=== PATIENT | female | born 1945 | race Caucasian/White ===

== ENCOUNTER 2023-12-30 12:05 | Observation (INO) | payer MEDICARE, SELFPAY ==
[2023-12-30] VITALS (11 sets, daily range): BP systolic 134–164; BP diastolic 65–100; PULSE 82–91; RESP 17–31; TEMP 36.3–36.4; O2SAT 98–100; BMI 25.9
--- NOTE | 2023-12-30 12:44 | DI.CT.S_ITS ---
PROCEDURE: CT CHEST ABD PEL WO CON INDICATIONS: fall 12/22, now throacic, lumbar pain w/ urinary retention TECHNIQUE: After the administration of oral contrast, 5 mm thick sections acquired from the lung apices to the symphysis pubis. 5 mm thick coronal and sagittal reformats acquired, with additional 7 mm coronal MIP reformats through the lungs. For radiation dose reduction, the following was used: automated exposure control, adjustment of mA and/or kV according to patient size. COMPARISON: None. FINDINGS: Image quality: Diagnostic sensitivity study limited secondary to lack of IV contrast. CHEST: Lower Neck: No enlarged lymph nodes. Thyroid: No thyroid nodules which require sonographic follow up, per consensus guidelines. Axillae: No enlarged lymph nodes. Chest Wall: Unremarkable. Bones: Osteopenia. Left 9th, 10th, 11th and 12th rib fractures. Lungs and Pleura: No pneumothorax or pleural effusions. No consolidation or suspicious nodules. Heart: Heart size is normal. No pericardial effusion. Thoracic Vessels: The aorta and pulmonary arteries demonstrate normal size. Mediastinum and Ambika: No enlarged lymph nodes. Esophagus: No wall thickening. Moderate-sized hiatal hernia. ABDOMEN: Liver: No solid mass. Punctate calcifications in the liver consistent with sequela prior granulomatous disease. Gallbladder: Calcified gallstones. No wall thickening. Biliary ducts: No biliary dilation. Pancreas: No ductal dilation. Spleen: Size is within normal limits. Adrenal Glands: No adrenal nodules. Kidneys and Ureters: No hydronephrosis. No solid mass. No complex renal cystic lesion which requires follow up. Stomach and Bowel: Moderate-sized hiatal hernia Normal colonic caliber, without significant wall thickening. Colonic diverticula without evidence of diverticulitis. Peritoneum: No abnormal intraperitoneal fluid. No free air. Ventral Wall: No hernia. Abdominal Nodes: No retroperitoneal or mesenteric adenopathy by size criteria. Vessels: Aorta and inferior vena cava are normal in size. PELVIS: Pelvic Organs: Calcified uterine fibroid.. Bladder: Unremarkable. Pelvic Nodes: No enlarged lymph nodes. Miscellaneous: No inguinal hernias are seen. Bones: No aggressive osseous abnormality. Spine degenerative disc disease and facet arthropathy. 9 millimeters of L4-L5 anterolisthesis secondary to facet hypertrophy. IMPRESSION: Left 9th, 10th, 11th and 12th rib fractures. No additional acute traumatic injury. Dictated by: Joelle Brandt MD, PhD on 12/30/2023 at 13:39 Approved by: Joelle Brandt MD, PhD on 12/30/2023 at 13:49
--- NOTE | 2023-12-30 12:44 | DI.CT.S_ITS ---
PROCEDURE: CT HEAD/BRAIN WO CON INDICATIONS: fall 12/22, now throacic, lumbar pain w/ urinary retention TECHNIQUE: Noncontrast 4.5 mm thick angled axial sections acquired from the foramen magnum to the vertex, with coronal and sagittal reformats. For radiation dose reduction, the following was used: automated exposure control, adjustment of mA and/or kV according to patient size. COMPARISON: None. FINDINGS: Image quality: Diagnostic. CSF spaces: Basal cisterns are patent. No extra-axial fluid collections. The ventricles are symmetric in size and shape. Brain: No intracranial bleeds or masses. There is cerebral volume loss for age, with resultant ventricular and sulcal prominence. There are periventricular and deep white matter chronic small vessel ischemic changes. There is intracranial internal carotid artery atherosclerosis. Skull and face: Calvarium and visualized facial bones appear intact, without suspicious lesions. Sinuses: Visualized sinuses and mastoids are clear. IMPRESSION: No acute intracranial disease process. Dictated by: Joelle Brandt MD, PhD on 12/30/2023 at 13:35 Approved by: Joelle Brandt MD, PhD on 12/30/2023 at 13:36
--- NOTE | 2023-12-30 12:44 | DI.CT.S_ITS ---
PROCEDURE: CT CERVICAL SPINE WO CON INDICATIONS: fall 12/22, now throacic, lumbar pain w/ urinary retention TECHNIQUE: Noncontrast 3 mm thick sections acquired from the skull base to the T4 level. Sagittal and coronal reformats were then constructed. For radiation dose reduction, the following was used: automated exposure control, adjustment of mA and/or kV according to patient size. COMPARISON: None. FINDINGS: Image quality: Excellent. Bones: No fractures or dislocations. Visualized superior ribs are intact. Soft tissues: Prevertebral soft tissues are normal in thickness. No paravertebral hematomas. No apical pneumothoraces. IMPRESSION: No fracture. No acute osseous lesion. If symptoms and/or clinical suspicion for pathology persists, evaluation with MRI should be considered for further assessment. Dictated by: Joelle Brandt MD, PhD on 12/30/2023 at 13:36 Approved by: Joelle Brandt MD, PhD on 12/30/2023 at 13:39
[2023-12-30 12:58] LABS: Add Manual Diff / Slide Review NO; Basophils Absolute Auto 0 /uL (0-100); Basophils Percent Auto 0.3 % (0-2); Eosinophils Absolute Auto 0 /uL (0-450); Eosinophils Percent Auto 0.2 % (2-4); Hematocrit 36.5 % (36-46); Hemoglobin 12.5 g/dL (12.0-16.0); Lymphocytes Absolute Auto 800 /uL (1100-4500); Lymphocytes Percent Auto 6.9 % (25-40); Mean Corpuscular HGB Conc 34.3 % (30-36); Mean Corpuscular Volume 90.4 fL (80-100); Monocytes Absolute Auto 500 /uL (0-900); Monocytes Percent Auto 4.5 % (3-14); Neutrophils Absolute Auto 10500 /uL (1500-7000); Neutrophils Percent Auto 88.1 % (50-75); Platelet Count 350 X10^3/uL (150-400); Red Blood Cell Count 4.04 X10^6/uL (4.0-5.2); Red Cell Distribution Width 13.3 % (11.6-14.8)
[2023-12-30 13:06] LABS: Prothrombin Time 11.6 SECONDS (9.4-12.5)
[2023-12-30 13:09] LABS: PTT Partial Thromboplastin Tim 25 SECONDS (25.1-36.5)
[2023-12-30 13:20] LABS: Alanine Aminotransferase 27 IU/L (<35); Albumin 4.1 g/dL (3.5-5.0); Albumin Globulin Ratio 1.2 (1.0-2.8); Alkaline Phosphatase 86 U/L (38-126); Aspartate Aminotransferase 56 IU/L (14-36); BUN Creatinine Ratio 23.1 (6-22); Bilirubin Total 1.3 mg/dL (0.2-1.3); Blood Urea Nitrogen 12 mg/dL (7-17); Calcium 9.3 mg/dL (8.4-10.2); Carbon Dioxide 25 mmol/L (22-32); Chloride 95 mmol/L (98-107); Creatine Kinase 669 U/L (30-135); Estimated Glomerular Filt Rate > 60 mL/min (>60); Globulin 3.5 g/dL (1.7-4.1); Glucose 128 mg/dL (80-110); HEMOLYSIS < 15 (0-50); Lipase 38 U/L (23-300); Magnesium 2.3 mg/dL (1.6-2.3); Potassium 3.6 mmol/L (3.4-5.1); Sodium 132 mmol/L (137-145); Total Protein 7.6 g/dL (6.3-8.2)
[2023-12-30 13:31] LABS: Troponin I < 0.012 ng/mL (0.01-0.034)
[2023-12-30] MEDS: LIDOCAINE 2% (GLYDO) 6 ML GEL TOP (14:01)
[2023-12-30] MEDS: SODIUM CHLORIDE 0.9% 1,000 ML 1000 ML IV (14:23)
[2023-12-30 14:36] LABS: Appearance Urine UA CLEAR; Bilirubin Urine UA NEGATIVE (NEGATIVE); Color Urine UA YELLOW; Glucose Urine UA NEGATIVE (Negative); Ketones Urine UA 2+ (NEGATIVE); Leukocyte Esterase Urine UA NEGATIVE (NEGATIVE); Nitrite Urine UA NEGATIVE (Negative); Occult Blood Urine UA NEGATIVE (Negative); Protein Urine UA NEGATIVE (Negative); Specific Gravity Urine UA 1.015 (1.000-1.035)
--- NOTE | 2023-12-30 14:36 | ED.FALL ---
HPI - Fall General Chief Complaint: Fall Stated Complaint: fall, fecal incontinence unable to urinate by PCP Time Seen by Provider: 12/30/23 14:04 Source: patient Mode of arrival: Wheelchair History of Present Illness HPI Narrative: patient here with sister. They live together. Patient here for left rib flank pain after a fall last . Since then unable to walk very well. Has had urinary retention as well as bowel incontinence. Patient admits she did take laxatives day 2 or 3 due to constipation. However has a hard time urinating. Patient denies any loss of consciousness. Is not on any blood thinners. No numbness or tingling or weakness to the legs or arms. Has had difficulty with mobility. Sister states she does not move very much and very difficult for her to move due to the pain. Related Data Home Medications Medication Instructions Recorded Confirmed lansoprazole 15 mg capsule,delayed 15 mg PO DAILY 03/23/22 12/30/23 release levothyroxine 25 mcg capsule 50 mcg PO DAILY 03/23/22 12/30/23 Previous Rx's Medication Instructions Recorded hydrocodone 5 mg-acetaminophen 325 1 tab PO Q6-8H PRN Pain, Moderate 01/02/24 mg tablet (4-6) #10 tabs lidocaine 5 % topical ointment 1 applic topical QID PRN Pain, 01/02/24 Mild (1-3) #50 grams lidocaine 5 % topical patch 1 patch topical DAILY #15 ea 01/02/24 polyethylene glycol 3350 17 17 g PO DAILY #510 grams 01/02/24 gram/dose oral powder tamsulosin 0.4 mg capsule (Flomax) 0.4 mg PO DAILY #30 caps 01/02/24 Allergies Allergy/AdvReac Type Severity Reaction Status Date / Time Sulfa (Sulfonamide Allergy Severe ITCHING Verified 12/30/23 12:23 Antibiotics) tetracycline Allergy Severe ITCHING Verified 12/30/23 12:23 cefuroxime Allergy Mild ITCHING Verified 12/31/23 14:19 Review of Systems Review of Systems Narrative: GENERAL: negative chills, fatigue, malaise, fever, sweats. HEENT: negative sinus pain, ear pain, sore throat RESPIRATORY: negative dyspnea, cough CARDIOVASCULAR: negative chest pain, palpitations GASTROINTESTINAL: negative nausea, vomiting, abdominal pain, positive stool incontinence : negative dysuria, frequency, hematuria, positive retention MUSCULOSKELETAL: positive muscle or bony pain SKIN: negative rash, skin lesions NEUROLOGIC: negative weakness, numbness ROS Unobtainable: All systems reviewed & are unremarkable except as noted in HPI and below Patient History Social History household members: family Smoking Status: Never smoker alcohol intake: never Smoking Status: Never smoker alcohol intake frequency: 0-2 drinks per day Substance Use Type: does not use Exam Narrative Exam Narrative: GENERAL: in no distress, not toxic not dyspneic HEAD: Normocephalic. EYES: Pupils equal round ENT: Mucous membranes moist. NECK: Trachea midline. CARDIOVASCULAR: Regular rate and rhythm RESPIRATORY: Clear to auscultation. Breath sounds equal bilaterally. No wheezes, rales, or rhonchi. GASTROINTESTINAL: Abdomen soft, non-tender EXTREMITIES: No gross deformities. Moving all 4 extremities purposely independently without difficulty. BACK: Tenderness to the lower /mid lateral back with bruising noted. NEURO: AOx4. Clear speech. Light touch intact to bilateral legs and feet. Able to lift each leg independently off the bed. SKIN: Warm and dry PSYCH: Not anxious, is cooperative Initial Vital Signs Initial Vital Signs: Vital Signs Temperature 97.3 F L 12/30/23 12:15 Pulse Rate 82 12/30/23 12:15 Respiratory Rate 18 12/30/23 12:15 Blood Pressure 134/66 12/30/23 12:15 Pulse Oximetry 99 12/30/23 12:15 Oxygen Delivery Method Room Air 12/30/23 12:15 Course Orders Ordered: Discontinued Medications Acetaminophen (Acetaminophen 325 Mg Tablet) 650 mg PO Q6H PRN PRN Reason: Fever/Mild Pain (1-3) Last Admin: 01/01/24 23:43 Dose: 650 mg Documented By: Admin: 12/31/23 05:32 Dose: 650 mg Documented By: SIM Hydrocodone Bitart/Acetaminophen (Hydrocodone/Acet 5/325 Tablet) 1 tab PO Q4H PRN PRN Reason: Pain, Moderate (4-6) Diphenhydramine HCl (Diphenhydramine 25 Mg Tablet) 25 mg PO Q6HR PRN PRN Reason: Itching Last Admin: 01/01/24 23:43 Dose: 25 mg Documented By: HANS Docusate Sodium (Docusate 100 Mg Capsule) 100 mg PO BID [facility] Last Admin: 01/02/24 10:03 Dose: Not Given Documented By: Admin: 01/01/24 21:50 Dose: Not Given Documented By: Admin: 01/01/24 10:57 Dose: Not Given Documented By: Admin: 12/31/23 21:59 Dose: Not Given Documented By: Admin: 12/31/23 08:17 Dose: Not Given Documented By: Admin: 12/30/23 21:45 Dose: Not Given Documented By: SIM Enoxaparin Sodium (Enoxaparin 30 Mg/0.3 Ml Syringe) 30 mg SUBCUT DAILY [facility] Enoxaparin Sodium (Enoxaparin 40 Mg/0.4 Ml Syringe) 40 mg SUBCUT DAILY [facility] Last Admin: 01/02/24 10:00 Dose: 40 mg Documented By: Admin: 01/01/24 11:10 Dose: Not Given Documented By: Admin: 12/31/23 08:37 Dose: Not Given Documented By: BILLIE Sodium Chloride (Normal Saline 0.9%) 1,000 mls @ 1,000 mls/hr IV BOLUS ONE Stop: 12/30/23 15:01 Last Infusion: 12/30/23 15:42 Dose: Infused Documented By: Admin: 12/30/23 14:23 Dose: 1,000 mls/hr Documented By: KYLEE Ceftriaxone Sodium 1,000 mg/ (Sodium Chloride) 100 mls @ 200 mls/hr IV Q24H [facility] Last Admin: 01/01/24 17:46 Dose: 200 mls/hr Documented By: Admin: 12/31/23 18:25 Dose: Not Given Documented By: Infusion: 12/31/23 01:18 Dose: Infused Documented By: Admin: 12/30/23 19:06 Dose: 200 mls/hr Documented By: BILLIE Lidocaine (Lidocaine 5% Patch) 1 each TOP DAILY [facility] Last Admin: 01/02/24 10:00 Dose: 1 each Documented By: Admin: 01/01/24 11:04 Dose: 1 each Documented By: Admin: 12/31/23 08:15 Dose: 1 each Documented By: BILLIE Lidocaine (Remove Lidocaine Patch) 1 each TOP BEDTIME [facility] Last Admin: 01/01/24 21:50 Dose: 1 each Documented By: Admin: 12/31/23 22:02 Dose: Not Given Documented By: Admin: 12/30/23 21:51 Dose: Not Given Documented By: SIM Lidocaine (Lidocaine 5% Oint 35 Gm) 1 applic TOP QID PRN PRN Reason: Pain, Mild (1-3) Last Admin: 01/01/24 17:52 Dose: 1 applic Documented By: YUKI Lidocaine HCl (Lidocaine 2% (Glydo) 6 Ml Gel) 6 ml TOP NOW ONE Stop: 12/30/23 13:44 Last Admin: 12/30/23 14:01 Dose: 6 ml Documented By: ROSENDO Morphine Sulfate (Morphine 4 Mg/Ml Inj) 2 mg IV Q2HR [facility] Last Admin: 12/31/23 00:47 Dose: Not Given Documented By: Admin: 12/30/23 17:50 Dose: Not Given Documented By: BILLIE Morphine Sulfate (Morphine 4 Mg/Ml Inj) 2 mg IV Q2HR PRN PRN Reason: Pain, Severe (7-10) Naloxone HCl (Naloxone 0.4 Mg/Ml Vial) 0.2 mg IV Q2MIN PRN PRN Reason: Opiate Reversal Nystatin (Nystatin Powder 15gm) 1 applic TOP TID PRN PRN Reason: Rash Last Admin: 12/30/23 19:03 Dose: 1 applic Documented By: BILLIE Ondansetron HCl (Ondansetron 4 Mg Odt) 4 mg PO Q8HR PRN PRN Reason: Nausea And Vomiting Potassium Chloride (Potassium Chloride 20 Meq Tab) 40 meq PO NOW ONE Stop: 12/31/23 11:39 Last Admin: 12/31/23 14:00 Dose: 40 meq Documented By: BILLIE Tamsulosin HCl (Tamsulosin 0.4 Mg Capsule) 0.4 mg PO NOW ONE Stop: 12/31/23 18:10 Last Admin: 12/31/23 19:23 Dose: 0.4 mg Documented By: BILLIE Tamsulosin HCl (Tamsulosin 0.4 Mg Capsule) 0.4 mg PO DAILY [facility] Last Admin: 01/02/24 10:00 Dose: 0.4 mg Documented By: Admin: 01/01/24 23:43 Dose: 0.4 mg Documented By: HANS Vital Signs Vital signs: Vital Signs - 8 hr 12/30/23 12:15 12/30/23 14:21 Temperature 97.3 F L Pulse Rate 82 91 H Respiratory Rate 18 18 Blood Pressure 134/66 Pulse Oximetry 99 Oxygen Delivery Method Room Air MDM - Fall Lab Data 01/02/24 09:45 01/02/24 09:45 Labs: Lab Results 12/30/23 Range/Units 12:35 WBC 12.0 H (4.5-11.0) X10^3/uL RBC 4.04 (4.0-5.2) X10^6/uL Hgb 12.5 (12.0-16.0) g/dL Hct 36.5 (36-46) % MCV 90.4 (80-100) fL MCH 31.0 (26-34) PG MCHC 34.3 (30-36) % RDW 13.3 (11.6-14.8) % Plt Count 350 (150-400) X10^3/uL Neut % (Auto) 88.1 H (50-75) % Lymph % (Auto) 6.9 L (25-40) % [place] % (Auto) 4.5 (3-14) % Eos % (Auto) 0.2 L (2-4) % Baso % (Auto) 0.3 (0-2) % Neut # (Auto) 52878 H (2505-6198) /uL Lymph # (Auto) 800 L (3525-1559) /uL [place] # (Auto) 500 (0-900) /uL Eos # (Auto) 0 (0-450) /uL Baso # (Auto) 0 (0-100) /uL PT 11.6 (9.4-12.5) SECONDS INR 1.0 (0.9-1.3) APTT 25 L (25.1-36.5) SECONDS Sodium 132 L (137-145) mmol/L Potassium 3.6 (3.4-5.1) mmol/L Chloride 95 L (98-107) mmol/L Carbon Dioxide 25 (22-32) mmol/L BUN 12 (7-17) mg/dL Creatinine 0.52 (0.52-1.04) mg/dL Estimated GFR > 60 (>60) mL/min BUN/Creatinine Ratio 23.1 H (6-22) Glucose 128 H (80-110) mg/dL Calcium 9.3 (8.4-10.2) mg/dL Magnesium 2.3 (1.6-2.3) mg/dL Total Bilirubin 1.3 (0.2-1.3) mg/dL AST 56 H (14-36) IU/L ALT 27 (<35) IU/L Alkaline Phosphatase 86 (38-126) U/L Total Creatine Kinase 669 H (30-135) U/L Troponin I < 0.012 (0.01-0.034) ng/mL Total Protein 7.6 (6.3-8.2) g/dL Albumin 4.1 (3.5-5.0) g/dL Globulin 3.5 (1.7-4.1) g/dL Albumin/Globulin Ratio 1.2 (1.0-2.8) Lipase 38 (23-300) U/L Urine Color Yellow Urine Appearance Clear Urine pH 7.0 (4.5-8.0) Ur Specific [place] 1.015 (1.000-1.035) Urine Protein Negative (Negative) Urine Glucose (UA) Negative (Negative) g/dL Urine Ketones 2+ H (NEGATIVE) Urine Occult Blood Negative (Negative) Urine Nitrate Negative (Negative) Urine Bilirubin Negative (NEGATIVE) Urine Urobilinogen 1.0 (0.2) E.U./dL Ur Leukocyte Esterase Negative (NEGATIVE) Urine RBC None seen (0-5/HPF) Urine WBC None seen (0-5/HPF) Ur Squamous Epith Cells None seen (0-5/HPF) Urine Bacteria None seen (None) Urine Mucus 1+ H (Negative) Ur Culture Indicated? Cult not indicated Vol Urine Centrifuged 10ml (spun) Imaging Data CT scan - head: Radiologist's Impression: [place] [address] CT Scan Report Signed Patient: Madeline Kelly MR#: [id number] : 1945 Acct:[id number] Age/Sex: 78 / F Date of Service: 12/30/23 Loc: ED Accession Number: [id number] Procedure: CT head/brain wo con Ordering Provider: Otoniel Ambrose MD PROCEDURE: CT HEAD/BRAIN WO CON INDICATIONS: fall 12/22, now throacic, lumbar pain w/ urinary retention TECHNIQUE: Noncontrast 4.5 mm thick angled axial sections acquired from the foramen magnum to the vertex, with coronal and sagittal reformats. For radiation dose reduction, the following was used: automated exposure control, adjustment of mA and/or kV according to patient size. COMPARISON: None. FINDINGS: Image quality: Diagnostic. CSF spaces: Basal cisterns are patent. No extra-axial fluid collections. The ventricles are symmetric in size and shape. Brain: No intracranial bleeds or masses. There is cerebral volume loss for age, with resultant ventricular and sulcal prominence. There are periventricular and deep white matter chronic small vessel ischemic changes. There is intracranial internal carotid artery atherosclerosis. Skull and face: Calvarium and visualized facial bones appear intact, without suspicious lesions. Sinuses: Visualized sinuses and mastoids are clear. IMPRESSION: No acute intracranial disease process. Dictated by: Joelle Brandt MD, PhD on 12/30/2023 at 13:35 Approved by: Joelle Brandt MD, PhD on 12/30/2023 at 13:36 CT - cervical spine: Radiologist's Impression: [place] [address] CT Scan Report Signed Patient: Madeline Kelly MR#: [id number] : 1945 Acct:[id number] Age/Sex: 78 / F Date of Service: 12/30/23 Loc: ED Accession Number: [id number] Procedure: CT cervical spine wo con Ordering Provider: Otoniel Ambrose MD PROCEDURE: CT CERVICAL SPINE WO CON INDICATIONS: fall 12/22, now throacic, lumbar pain w/ urinary retention TECHNIQUE: Noncontrast 3 mm thick sections acquired from the skull base to the T4 level. Sagittal and coronal reformats were then constructed. For radiation dose reduction, the following was used: automated exposure control, adjustment of mA and/or kV according to patient size. COMPARISON: None. FINDINGS: Image quality: Excellent. Bones: No fractures or dislocations. Visualized superior ribs are intact. Soft tissues: Prevertebral soft tissues are normal in thickness. No paravertebral hematomas. No apical pneumothoraces. IMPRESSION: No fracture. No acute osseous lesion. If symptoms and/or clinical suspicion for pathology persists, evaluation with MRI should be considered for further assessment. Dictated by: Joelle Brandt MD, PhD on 12/30/2023 at 13:36 Approved by: Joelle Brandt MD, PhD on 12/30/2023 at 13:39 CT chest abdomen and pelvis: Radiologist's Impression: [address] [address] [address] Scan Report Signed Patient: Madeline Kelly MR#: [id number] : 1945 Acct:[id number] Age/Sex: 78 / F Date of Service: 12/30/23 Loc: ED Accession Number: [id number] Procedure: CT chest abd pel wo con Ordering Provider: Otoniel Ambrose MD PROCEDURE: CT CHEST ABD PEL WO CON INDICATIONS: fall 12/22, now throacic, lumbar pain w/ urinary retention TECHNIQUE: After the administration of oral contrast, 5 mm thick sections acquired from the lung apices to the symphysis pubis. 5 mm thick coronal and sagittal reformats acquired, with additional 7 mm coronal MIP reformats through the lungs. For radiation dose reduction, the following was used: automated exposure control, adjustment of mA and/or kV according to patient size. COMPARISON: None. FINDINGS: Image quality: Diagnostic sensitivity study limited secondary to lack of IV contrast. CHEST: Lower Neck: No enlarged lymph nodes. Thyroid: No thyroid nodules which require sonographic follow up, per consensus guidelines. Axillae: No enlarged lymph nodes. Chest Wall: Unremarkable. Bones: Osteopenia. Left 9th, 10th, 11th and 12th rib fractures. Lungs and Pleura: No pneumothorax or pleural effusions. No consolidation or suspicious nodules. Heart: Heart size is normal. No pericardial effusion. Thoracic Vessels: The aorta and pulmonary arteries demonstrate normal size. Mediastinum and Ambika: No enlarged lymph nodes. Esophagus: No wall thickening. Moderate-sized hiatal hernia. ABDOMEN: Liver: No solid mass. Punctate calcifications in the liver consistent with sequela prior granulomatous disease. Gallbladder: Calcified gallstones. No wall thickening. Biliary ducts: No biliary dilation. Pancreas: No ductal dilation. Spleen: Size is within normal limits. Adrenal Glands: No adrenal nodules. Kidneys and Ureters: No hydronephrosis. No solid mass. No complex renal cystic lesion which requires follow up. Stomach and Bowel: Moderate-sized hiatal hernia Normal colonic caliber, without significant wall thickening. Colonic diverticula without evidence of diverticulitis. Peritoneum: No abnormal intraperitoneal fluid. No free air. Ventral Wall: No hernia. Abdominal Nodes: No retroperitoneal or mesenteric adenopathy by size criteria. Vessels: Aorta and inferior vena cava are normal in size. PELVIS: Pelvic Organs: Calcified uterine fibroid.. Bladder: Unremarkable. Pelvic Nodes: No enlarged lymph nodes. Miscellaneous: No inguinal hernias are seen. Bones: No aggressive osseous abnormality. Spine degenerative disc disease and facet arthropathy. 9 millimeters of L4-L5 anterolisthesis secondary to facet hypertrophy. IMPRESSION: Left 9th, 10th, 11th and 12th rib fractures. No additional acute traumatic injury. Dictated by: Joelle Brandt MD, PhD on 12/30/2023 at 13:39 Approved by: Joelle Brandt MD, PhD on 12/30/2023 at 13:49 [facility] Narrative Medical decision making narrative: patient here with sister. They live together. Patient here for left rib flank pain after a fall last . Since then unable to walk very well. Has had urinary retention as well as bowel incontinence. Patient admits she did take laxatives day 2 or 3 due to constipation. However has a hard time urinating. Patient denies any loss of consciousness. Is not on any blood thinners. No numbness or tingling or weakness to the legs or arms. Has had difficulty with mobility. Sister states she does not move very much and very difficult for her to move due to the pain. After history and examCT head CT cervical spine CT chest abdomen pelvis Correia catheter bladder scan CBC CMP urinalysis [facility] CC: back pain Complicating co-morbidities: age Data collected from: patient and sister Medical records reviewed: no recent visit for this complaint Differential considered: Includes but not limited to rib fracture pneumothorax spine fracture cord compression Exam documented above, pertinent findings include: bruising and tender left ribs Lab Test results independently reviewed as above. Pertinent findings: WBC 12.0 hemoglobin 12.5 sodium 132 potassium 3.6 total [id number] urinalysis 2+ ketones negative bloodNegative leukocyte esterase negative nitrate Independently reviewed EKG normal sinus rhythm rate [address] elevationOr depression Imaging studies independently reviewed: CT head CT cervical spine CT chest abdomen pelvis does show left rib fractures 9 08/25/12 Consultations: 2:40 p.m.. Spoke with primary care, dr gustafson, will admit Treatments: lidocaine patch Re-evaluations: 2:45 p.m.. Updated patient and sister. They do understand need for admission including but not limited MRI as well as physical therapy and rehab Discussion: appropriate for admission for multiple rib fractures needing physical therapy and rehab Diagnosis: multiple rib fracture Discharge Plan Departure Patient Disposition: Admitted As Inpatient Clinical Impression: Multiple fractures of ribs Qualifiers: Encounter type: initial encounter Fracture type: closed Laterality: left Qualified Code(s): S22.42XA - Multiple fractures of ribs, left side, initial encounter for closed fracture Admit Date/Time: 12/30/23 15:59 Admit Provider: Willie Gustafson
[2023-12-30 14:44] LABS: Bacteria Urine None Seen; Culture Indicated Urine Cult Not Indicated; Mucus Urine 1+ (Negative); RBC Urine None Seen (0-5/HPF); Squamous Epithelial Cell Urine None Seen (0-5/HPF); Urine Volume 10mL (spun); WBC Urine None Seen (0-5/HPF)
--- NOTE | 2023-12-30 15:19 | PM.HP.1 ---
History of Present Illness History of Present Illness Date Patient Seen: 12/30/23 Time Patient Seen: 15:19 Chief complaint: fall, fecal incontinence unable to urinate by PCP Narrative: CC: L sided chest pain Patient presented to clinic outpatient today with complaint of urinary retention and chest pain after fall several days ago, tripped over her cat and landed on a heavy piece of furniture. Initial XRs showed no fracture but repeat CT today demonstrated 4 broken ribs. She remains with urinary retention - initial eval of urine not remarkable for obvious signs of infection. She reports she was constipated up until taking some laxative two days ago had a big blowout. She feels ok today as long as she does not move at all. [facility] Social History Smoking Status: Never smoker Meds Home Medications and Allergies Home Medications Medication Instructions Recorded Confirmed Type lansoprazole 15 mg capsule,delayed 15 mg PO DAILY 03/23/22 12/30/23 History release levothyroxine 25 mcg capsule 50 mcg PO DAILY 03/23/22 12/30/23 History Allergies Allergy/AdvReac Type Severity Reaction Status Date / Time cefuroxime Allergy Severe ITCHING Verified 12/30/23 12:23 Sulfa (Sulfonamide Allergy Severe ITCHING Verified 12/30/23 12:23 Antibiotics) tetracycline Allergy Severe ITCHING Verified 12/30/23 12:23 Review of Systems Review of Systems Narrative: all systems reviewed and negative except as otherwise documented in HPI. Exam Vital Signs (past 8 hours): - 12/30/23 12:15 12/30/23 14:21 12/30/23 14:45 Temperature 97.3 F L Pulse Rate 82 91 H 84 Respiratory Rate 18 18 Blood Pressure 134/66 Pulse Oximetry 99 100 Oxygen Delivery Method Room Air Room Air 12/30/23 15:00 Temperature Pulse Rate 82 Respiratory Rate 20 Blood Pressure Pulse Oximetry 100 Oxygen Delivery Method Room Air Oxygen Delivery Method Room Air Narrative Exam Narrative: laying motionless in bed wedged with pillows Const General: cooperative, comfortable and well developed Nutritional Appearance: average body habitus and well nourished Chest Other: substantial ecchymosis across L chest wall which is quite tender to palpation Resp Other: moving air well, satting ok on room air. Cardio Other: regular rate and rhythm, s1/s2 GI Other: soft nontender active bowel sounds Other: dark urine draining to haynes Neuro Other: aaox3, cn 2-12 grossly wnl Objective Labs 12/30/23 12:35 12/30/23 12:35 Labs: Laboratory Results - last 24 hr 12/30/23 12:35 WBC 12.0 H RBC 4.04 Hgb 12.5 Hct 36.5 MCV 90.4 MCH 31.0 MCHC 34.3 RDW 13.3 Plt Count 350 Neut % (Auto) 88.1 H Lymph % (Auto) 6.9 L [place] % (Auto) 4.5 Eos % (Auto) 0.2 L Baso % (Auto) 0.3 Neut # (Auto) 08614 H Lymph # (Auto) 800 L [place] # (Auto) 500 Eos # (Auto) 0 Baso # (Auto) 0 PT 11.6 INR 1.0 APTT 25 L Sodium 132 L Potassium 3.6 Chloride 95 L Carbon Dioxide 25 BUN 12 Creatinine 0.52 Estimated GFR > 60 BUN/Creatinine Ratio 23.1 H Glucose 128 H Calcium 9.3 Magnesium 2.3 Total Bilirubin 1.3 AST 56 H ALT 27 Alkaline Phosphatase 86 Total Creatine Kinase 669 H Troponin I < 0.012 Total Protein 7.6 Albumin 4.1 Globulin 3.5 Albumin/Globulin Ratio 1.2 Lipase 38 Urine Color Yellow Urine Appearance Clear Urine pH 7.0 Ur Specific [place] 1.015 Urine Protein Negative Urine Glucose (UA) Negative Urine Ketones 2+ H Urine Occult Blood Negative Urine Nitrate Negative Urine Bilirubin Negative Urine Urobilinogen 1.0 Ur Leukocyte Esterase Negative Urine RBC None seen Urine WBC None seen Ur Squamous Epith Cells None seen Urine Bacteria None seen Urine Mucus 1+ H Ur Culture Indicated? Cult not indicated Vol Urine Centrifuged 10ml (spun) Assessment & Plan Assessment & Plan narrative: #s/p fall #broken L ribs, four consecutive pain control with prns and lidocain patch O2 monitor and prn O2 PT to work with her in morning see how she is at getting around mobility may be a challenge may benefit from rehab. #urinary retention concerning lack of output in last few days haynes placed with good output no obvious signs of infection in urine monitor and hydrate #leukocytosis concerning with neutrophilic predominance in this setting I am concerned for possible brewing pneumonia vs UTI vs ?? will treat empirically with some rocephin see how these numbers trend #hx of hypothyroidism very low dose 25 mcg hold for now #cold feet a/w PTSD Pt reports she will do a lot better this admission if her feet can be kept nice and warm constantly. OK to use a hot water bottle or electric blanket as desired. dispo: admit obsv, work with PT MDM: cousin [phone] diet: general DVT: Lovenox PCP: Reymundo Code: DNR
[2023-12-30] MEDS: NYSTATIN POWDER 15GM 1 APPLIC TOP (19:03)
[2023-12-30] MEDS: cefTRIAXone 1,000 MG in SODIUM CHLORIDE 0.9% 100 ML 200 MG IV (19:06)
--- NOTE | 2023-12-30 19:51 | PC.NURSE ---
Patient arrived to room 214 at approximately 1725 this evening. She is A&Ox4, VSS on RA. Admission assessment completed. She is cleaned of incontinent stool. MD notified for nystatin for yeast/redness to folds. She denies wanting any pain medications,provided education for medications including IV antibiotics. Correia in place, bed alarm on. Continuous monitoring.
[2023-12-31 02:00] VITALS: BP 132/68; PULSE 84; RESP 17; TEMP 36.7; O2SAT 98
[2023-12-31] MEDS: ACETAMINOPHEN 325 MG TABLET 650 MG PO (05:32)
[2023-12-31 07:31] LABS: Add Manual Diff / Slide Review NO; Basophils Absolute Auto 0 /uL (0-100); Basophils Percent Auto 0.2 % (0-2); Eosinophils Absolute Auto 200 /uL (0-450); Hematocrit 32.4 % (36-46); Hemoglobin 11.4 g/dL (12.0-16.0); Lymphocytes Absolute Auto 900 /uL (1100-4500); Lymphocytes Percent Auto 10.6 % (25-40); Mean Corpuscular HGB Conc 35.2 % (30-36); Mean Corpuscular Hemoglobin 31.7 PG (26-34); Mean Corpuscular Volume 90.2 fL (80-100); Monocytes Absolute Auto 600 /uL (0-900); Monocytes Percent Auto 6.8 % (3-14); Neutrophils Absolute Auto 6900 /uL (1500-7000); Neutrophils Percent Auto 80.4 % (50-75); Platelet Count 311 X10^3/uL (150-400); Red Blood Cell Count 3.59 X10^6/uL (4.0-5.2); Red Cell Distribution Width 12.9 % (11.6-14.8); White Blood Cell Count 8.5 X10^3/uL (4.5-11.0)
[2023-12-31 07:51] LABS: Alanine Aminotransferase 23 IU/L (<35); Albumin 3.2 g/dL (3.5-5.0); Albumin Globulin Ratio 1.1 (1.0-2.8); Alkaline Phosphatase 73 U/L (38-126); Aspartate Aminotransferase 43 IU/L (14-36); BUN Creatinine Ratio 10.9 (6-22); Bilirubin Total 0.8 mg/dL (0.2-1.3); Blood Urea Nitrogen 5 mg/dL (7-17); Calcium 8.4 mg/dL (8.4-10.2); Carbon Dioxide 23 mmol/L (22-32); Chloride 101 mmol/L (98-107); Estimated Glomerular Filt Rate > 60 mL/min (>60); Glucose 112 mg/dL (80-110); HEMOLYSIS < 15 (0-50); Potassium 3.3 mmol/L (3.4-5.1); Sodium 133 mmol/L (137-145); Total Protein 6.2 g/dL (6.3-8.2)
[2023-12-31 08:00] VITALS: BP 123/49; PULSE 78; RESP 19; TEMP 36; O2SAT 98
[2023-12-31] MEDS: LIDOCAINE 5% PATCH 1 EACH TOP (08:15)
--- NOTE | 2023-12-31 11:45 | PT.IIE ---
Physical Therapy Inpatient Evaluation/Re-Eval M1 PT/OT-IP Prior Functional Status Start: 12/31/23 13:36 Freq: NEEDED Status: Active Protocol: Document 12/31/23 11:45 AB (Rec: 12/31/23 13:52 AB [id number]) Medical Review Prior Functional Status Medical History Reviewed Yes Communication able to make needs known Mobility and Gait pt stated that she wasmodified independent with all mobilities and ambulation wtihout AD Social History Household Members family Living Arrangements House Number of Floors (Floors) One Floor Number of Stairs To Enter/Railing? 1 step to enter Home Environment Standard Height Toilet,Walk in Shower Home Equipment Shower Seat without Backrest, Hand Held Shower Additional Social History Comment pt lives with her sister and will be able to assist pt pt sleep on her couch has access to a standard walker and a 4WW M2 PT-IP Current Condition Start: 12/31/23 13:36 Freq: NEEDED Status: Active Protocol: Document 12/31/23 11:45 AB (Rec: 12/31/23 13:52 AB [id number]) Physical Therapy Current Condition Current Condition Evaluation Date 12/31/23 Treatment Diagnosis S/p fall; Rib fx; difficulty in walking Onset Date 12/30/23 M3 PT-IP Subjective Start: 12/31/23 13:36 Freq: NEEDED Status: Active Protocol: Document 12/31/23 11:45 AB (Rec: 12/31/23 13:52 AB [id number]) Subjective Physical Therapy Visit Type Type Initial Evaluation Visit Start Time 11:45 Visit Stop Time 12:35 Number of FOREST FIRE WARDEN Visits 0 Physical Therapy Visit Comments Patient Comments agreeable to do PT Therapy Pain Assessment Pain When Pain Assessed During Mobility Pain Present Pain Present Pain Reported Location Left Ribs Scale Used pain scale not stated Pain Management Techniques Distraction,Modification of Treatment,Re-positioning, Timing of Activity with Medications M4 PT-IP Mobility and Gait Start: 12/31/23 13:36 Freq: NEEDED Status: Active Protocol: Document 12/31/23 11:45 AB (Rec: 12/31/23 13:52 AB [id number]) PT-Bed Mobility Assessment Supine to Sit Supine to Sit Moderate Assistance,Maximum Assistance,1 Person Assistance ,Head of Bed Elevated PT-Transfer Assessment Sit to and From Stand Sit to and from Stand Minimal Assistance,1 Person Assistance,Use of Upper Extremities Equipment Transfer Assistive Device None,Gait Belt,Front Wheeled Walker,4 Wheeled Walker Orthotic/Prosthetic Devices or Brace: No Transfers Transfer Destination Bed,Chair Transfer Technique ambulated Transfer Ability Level of Assist Standby Assistance,Contact Guard Assistance,Minimal Assistance,1 Person Assistance ,Use of Upper Extremities Comments Mobility Comments pt supine in bed and agreeable to do PT. completed supine to sit log roll mod to max A and max cues. c/o increase L sided rib pain. pt able to sit on EOB with initial min A for steadiness. completed sit to stand min A and cues and ambulated in room using FWW CGA and then without AD ~ 40 ft CGA to min A with (+) LOB requiring min A. pt presents with unsteady antalgic gait with increase lateral trunk lean to the R and needing increase time to reposition body back to center during R stance phase. educated pt on safety and agreed to use FWW and completed in room SBA. pt sat on chair. pt has access to a standard walker and a 4WW upon d/c. assessed ambulation using a 4WW. educated pt on how to use 4WW/brakes. pt ambulated in room using 4WW SBA to CGA and cues for safety. pt requires more training. pt sat on the chair. positioned on the chair. Left pt with OT. Gait Assessment Gait Gait Assistance Required: Standby Assistance,Contact Guard Assist,Minimum Assistance,1 Person Assist Distance (Feet) 50 Able to Maintain Weight Bearing Status Yes During Gait Assistive Devices Assistive Device None,Gait Belt,Front Wheeled Walker,4 Wheeled Walker Orthotic/Prosthetic Devices or Brace: No Gait Deviations General Gait Pattern Antalgic,Ataxic,Decreased Stride Length,Decreased Feet Clearance,Flexed Trunk Factors Limiting Gait Function Factors Limiting Gait Function Decreased Activity Tolerance, Decreased Strength,Limited Range of Motion,Pain,Poor Balance,Poor Safety Awareness PT-Balance Assessment Sitting Balance and Reactions Static Sitting Balance Ability Good Dynamic Sitting Balance Ability Good Standing Balance and Reactions Static Standing Balance Ability Fair Dynamic Standing Balance Ability Fair Device Used FWW M5 PT-IP Objective Assessments Start: 12/31/23 13:36 Freq: NEEDED Status: Active Protocol: Document 12/31/23 11:45 AB (Rec: 12/31/23 13:52 AB [id number]) Orientation Orientation/Cognition Level of Alertness Alert Orientation Name,Place,Situation Language Function Ability Hard of Hearing Safety Awareness Decreased Safety Awareness Memory Description Short Term Impaired Gross Range of Motion Lower Extremity ROM Assessment Within Functional Limits Strength Lower Extremity Strength Assessment Within Functional Limits Coordination Assessment Gross Coordination Gross Coordination WNL Sensation Assessment Sensation Gross Sensation WNL Muscle Tone Muscle Tone WNL Yes M6 PT-IP Treatment Start: 12/31/23 13:36 Freq: NEEDED Status: Active Protocol: Document 12/31/23 11:45 AB (Rec: 12/31/23 13:52 AB [id number]) Physical Therapy Treatment Education Education Provided Safety M7 PT-IP Assessment and Plan Start: 12/31/23 13:36 Freq: NEEDED Status: Active Protocol: Document 12/31/23 11:45 AB (Rec: 12/31/23 13:52 AB [id number]) PT Summary Assessment and Plan Potential Rehabilitation Potential Fair Status of Condition at Evaluation Evolving Summary Impairments Pain,ROM,Strength,Balance, Coordination,Sensation,Tone, Cognition,Bed Mobility, Transfers,Gait,Activity Tolerance Assessment Summary pt is a 78 y/o F who presented to the ED due to a GLF and urinary retention. Pt found to have L 9th. 10th, 11th and 12th rib fx. pt requiring CGA to min A with transfers and ambulation and max A with bed mobility. pt plans to go home and her sister will assist pt . caregiver training will be conducted when appropriate. pt will require HHPT. will continue to assess progress. Goals Bed Mobility Goal Independent Transfer Goal Independent,Four Wheeled Walker Gait Goal Independent,Four Wheel Walker Gait Distance 200 Other Goals improve transfers and ambulation without AD ~ 250 ft SBA up/down 1 step 4WW or without AD SBA Days to Meet Goals 10 Frequency of Treatment Frequency Of Treatment Once a Day Treatment Plan Physical Therapy Treatment Plan Bed Mobility Training,Transfer Training,Gait Training, Therapeutic Exercise,Balance Retraining,Discharge Planning, Hot or Cold Pack,Neuromuscular Re-ed,Coordination Retraining Precautions Other Precautions falls Recommendations To Nursing Amount of Assist Needed 1 Person Assist Discharge Recommendations PT Discharge Recommendations Home with 07/06 Assist Available,Home Health Equipment Needed for Home Before FWW if not safe with 4WW/ Discharge without AD Transportation Needs at Discharge Private Vehicle,Wheelchair/ Cabulance
--- NOTE | 2023-12-31 11:59 | CM.DANOTE ---
Initial DCP Assessment Note Pt is a 78 yo female, resident of [place], arrives after recent fall, found to have fractured ribs, w/complaint of urinary retention and constipation. PCP: Willie Dwyer Payer: POLA/ANGELINE Reviewed chart, met w/patient to introduce self and role. Patient reports being indp in all aspects, lives with sister Alcira. Patient denies hx of HH or SNF and is adamant that she will be returning home w/sister to assist as needed. Patient reports being a home body. Discussed HH services and patient does not feel she needs, states she will follow up outpatient with PT if recommended. Therapy evals pending. Patient discussed with provider; likely discharge today, pending therapy evals. CORINNE Estrella Discharge Planning/Care Management CM Discharge Assessment Start: 12/31/23 11:57 Freq: Status: Active Protocol: Document 12/31/23 11:57 ANDRIY (Rec: 12/31/23 11:59 ANDRIY [id number]) Discharge Planning Assessment Assigned Traffic Sign Erection Supervisor CORINNE Pelaez DPOA/Assigned Designee Name sister Valle Contact Information [phone] Advance Directives? Yes Advance Directives on File Yes: patient believes she had done years ago History Provided By Patient,Medical Record Prior Living Arrangements House Household Members family Type of transporation used prior to Relies on Others admit Independent with ADL's Yes Is patient alert and oriented? Yes Patient/Family Preference OP PT Therapy Barriers to Discharge No Comment At this time, patient reporting she will seek PT outpatient, does not want HH PT Discharge Plan Home Transportation Arrangement Family Additional Comment Can make HH referral if PT recommends and patient agreeable Whiteboard Updated in Patient Room with Yes name and ext. # of Traffic Sign Erection Supervisor
--- NOTE | 2023-12-31 12:37 | OT.IP.EVAL ---
Occupational Therapy Inpatient Evaluation/Re-Eval M2 OT-IP Current Condition Start: 12/31/23 12:43 Freq: Status: Active Protocol: Document 12/31/23 12:44 [facility] (Rec: 12/31/23 13:13 [facility] [id number]) Occupational Therapy Current Condition Current Condition Evaluation Date 12/31/23 Treatment Diagnosis Fall s/p Left 9-12th rib fractures Diagnosis Onset Date 12/30/23 Post Operative Precautions Lumbar Precautions Log Roll,No Twisting,Limit Bending,Lifting Restriction of 10 lbs,Gait Belt above Incisional Area M3 OT- IP Subjective and Pain Start: 12/31/23 12:43 Freq: Status: Active Protocol: Document 12/31/23 12:44 [facility] (Rec: 12/31/23 13:13 [facility] [id number]) OT- Subjective Occupational Therapy Visit Type Type Initial Evaluation Visit Start Time 11:45 Visit Stop Time 12:37 Occupational Therapy Visit Comments Patient Comments Pt agreed to get up. Patient/Caregiver Goals To go home. OT Pain Assessment Pain When Pain Assessed At Rest Pain Present Pain Present Denied Pain M4 OT- IP ADL's Start: 12/31/23 12:43 Freq: Status: Active Protocol: Document 12/31/23 12:44 [facility] (Rec: 12/31/23 13:13 [facility] [id number]) OT ALG-Rssd-Eowpxuw General Evaluation Self-Feeding Ability Independent OT ADL-Grooming Comments OT Grooming Comments Not performed, no issues anticipated. OT ADL-Oral Care Comments Oral Care Comments Not performed. OT ADL-Dressing Comments OT Dressing Comments Assist with socks, pt able to comfortably cross legs over with no pain. OT ADL-Toileting General Evaluation Toileting Ability Total Assistance Comments OT Toileting Comments Correia in place. OT ADL-Bathing Comments OT Bathing Comments Pt states has a shower stool and her sister is able to assist. M5 OT- IP IADL's Start: 12/31/23 12:43 Freq: Status: Active Protocol: Document 12/31/23 12:44 [facility] (Rec: 12/31/23 13:13 [facility] [id number]) OT-Instrumental Activities of Daily Living Deficits IADL Deficits Identified Deficits Home Safety Awareness Awareness of Need for Assistance at Home Good Awareness Ability to Problem Solve Emergency Able to Problem Solve Situations Home Safety Comments Pt's sister to be able to assist pt as needed. Meal Preparation Meal Preparation Caregiver Provides Assist Job Coaching Job Coaching Caregiver Provides Assist Driving Driving Comments At this time best to hold off on driving until feeling better. M6 OT- IP Functional Cognition Start: 12/31/23 12:43 Freq: Status: Active Protocol: Document 12/31/23 12:44 [facility] (Rec: 12/31/23 13:13 [facility] [id number]) Cognitive Factors Limiting Selfcare Function Cognitive Ability Level of Alertness Alert Patient Orientation Name,Age,Birthday,Month,Date, Year,Day of Week,Place, Situation Attention Span Ability Capable of Focused Attention, Capable of Sustained Attention Ability to Follow Commands Able to Follow One Step Commands Cognitive Comments Cognitive Assessment Comments Pt able to follow commands but needing cues for safety to keep the FWW closer to her while walking. Pt tends to have the FWW too far away. M7 OT- IP Mobility and Balance Start: 12/31/23 12:43 Freq: Status: Active Protocol: Document 12/31/23 12:44 [facility] (Rec: 12/31/23 13:13 [facility] [id number]) OT- Bed Mobility Assessment Supine to Sit Supine to Sit Assist Moderate Assistance,Maximum Assistance OT-Transfer Assessment Sit to and From Stand Sit to and from Stand Minimal Assistance Transfers Transfer Ability Contact Guard Assistance Technique Transfer Destination Bed,Chair Transfer Technique Stand Step Pivot Devices Transfer Assistive Devices None,Gait Belt,Front Wheeled Walker,4 Wheeled Walker Comments Mobility Comments MOD/MAXA x1 to help get up from sidelying and CGA to stand to the FWW and eventually close SBA with fww and 4ww. Pt had loss of balance when not using the FWW . OT- Balance Assessment Sitting Balance and Reactions Static Sitting Balance Ability Normal Dynamic Sitting Balance Ability Good Standing Balance and Reactions Static Standing Balance Ability Fair Dynamic Standing Balance Ability Fair M8 OT- IP Objective Assessments Start: 12/31/23 12:43 Freq: Status: Active Protocol: Document 12/31/23 12:44 [facility] (Rec: 12/31/23 13:13 [facility] [id number]) OT Gross Range of Motion Upper Extremity Range of Motion Assessment Bilaterally Impaired ROM Impairments Decreased at end AROM R>L due to old fall per pt. OT Strength Comments Strength Comments Elbow to distal 4/5 OT- Coordination Assessment Upper Extremity Finger to Nose Test Within Functional Limits M9 OT- IP Assessment and Plan Start: 12/31/23 12:43 Freq: Status: Active Protocol: Document 12/31/23 12:44 [facility] (Rec: 12/31/23 13:13 [facility] [id number]) OT Summary Assessment and Plan Potential Rehabilitation Potential Good Analytic Complexity at Evaluation Moderate Summary OT Impairments Pain,Strength,Balance, Functional Mobility,Dressing, Toileting,Bathing,Toilet Transfers,Shower Transfers Progress Towards Goals Progressing Toward Goals,Slow Progress due to Pain,Slow Progress due to Medical Issues Assessment Summary Pt MOD complexity and main barriers are pain during mobility, decreased dynamic balance and will need assist for some ADL and IADL needs. Pt states might have a 4ww she can get or standard walker that she loaned to a friend before. Pt to go home when medically stable with her sister to assist as needed. Goals Self-Feeding Goal Independent Grooming Goal Independent Dressing Goal Independent Toileting Goal Independent Bathing Goal Independent Toilet Transfer Goal Independent Shower Transfer Goal Independent Days to Meet Goals 7 Frequency of Treatment Frequency Of Treatment Once a Day Treatment Plan OT Treatment Plan ADL Training,Functional Mobility,Patient/Family Education,Discharge Planning Discharge Recommendations OT Discharge Recommendations Home with Assistance Home Equipment Needs to be determined Transportation Needs at Discharge Private Vehicle
[2023-12-31] MEDS: POTASSIUM CHLORIDE 20 MEQ TAB 40 MEQ PO (14:00)
[2023-12-31 14:17] VITALS: BP 135/52; PULSE 72; RESP 22; TEMP 36.1; O2SAT 99
--- NOTE | 2023-12-31 14:28 | DI.MRI.S_ITS ---
PROCEDURE: MR LUMBAR SPINE WO CON INDICATIONS: Stool incontinence/back pain TECHNIQUE: Noncontrast sagittal T1 spin echo and T2 fast echo, sagittal STIR, and T2 fast spin echo through the lumbar spine. In cases with scoliosis, additional coronal T2 fast spin echo may be performed. COMPARISON: [facility], MR, MR THORACIC SPINE WO CON, 12/31/2023, 9:57. [facility], CT, CT CHEST ABD PEL WO CON, 12/30/2023, 13:09. FINDINGS: Image quality: This examination is limited by involuntary motion artifact. Alignment and Curvature: There is minimal retrolisthesis at T12-L1, L1-L2, and L2-L3. Grade 1 anterolisthesis can be seen at L4-L5, without associated pars defects. Bone Marrow: Marrow is of normal overall signal. No acute vertebral body compression fractures. Spinal Cord: Conus medullaris terminates at the L1 level. Visualized cord demonstrates normal signal and size. Paraspinous Soft Tissues: No paravertebral masses. T12-L1: Moderate loss of disc height is seen. Loss of disc signal is seen. Mild generalized disc bulge is seen. No significant neural foraminal or central canal narrowing can be seen. L1-L2: Moderate loss of disc height is seen. Loss of disc signal is seen. Moderate generalized disc bulge is seen. There is a superimposed central disc extrusion, with mild superior migration of the disc material. There is moderate right-sided and mild left-sided neural foraminal narrowing. Mild central canal narrowing is seen. L2-L3: At least moderate loss of disc height and disc signal can be seen. Reactive marrow endplate changes are seen which are hypointense on T1-weighted imaging and hyperintense on T2 weighted imaging, which is most consistent with edema (Modic type I changes). Moderate generalized disc bulge is seen. There is a superimposed central disc protrusion. Moderate facet joint hypertrophy is seen. There is at least moderate right-sided and moderate left-sided neural foraminal narrowing. Moderate central canal narrowing is seen. L3-L4: Mild loss of disc height is seen. Loss of disc signal is seen. Mild to moderate disc bulge is seen, which is eccentric to the right. There is a right subarticular disc protrusion, as on series 6, image 18. Moderate facet joint hypertrophy is seen. There is moderate left-sided and moderate to severe right-sided neural foraminal narrowing. There is a degree of compression upon the exiting right L3 nerve roots. Moderate central canal narrowing is seen. L4-L5: Mild loss of disc height is seen. Loss of disc signal is seen. Moderate generalized disc bulge is seen. There is a central disc protrusion/uncovering seen. Prominent facet hypertrophy is seen. There is moderate to severe bilateral neural foraminal narrowing seen, with an associated a degree of compression seen upon the exiting nerve roots. Moderate to severe central canal narrowing is also seen. L5-S1: The disc height is well-preserved. Loss of disc signal is seen at this level. Mild generalized disc bulge is seen, which is eccentric to the left. Mild facet joint hypertrophy is seen. Mild bilateral neural foraminal narrowing is seen. Minimal central canal narrowing is seen. IMPRESSION: Negative for acute abnormality. No imaging explanation is found for this patient's presenting symptoms. Multiple levels of degenerative change can be seen, which are overall worst at the L4-L5 level. Bony edema can be seen involving the endplates of the L2-L3 level, which is attributed to chronic degenerative change. Dictated by: Liborio Razo M.D. on 12/31/2023 at 10:21 Approved by: Liborio Razo M.D. on 12/31/2023 at 10:26
--- NOTE | 2023-12-31 14:29 | DI.MRI.S_ITS ---
PROCEDURE: MR THORACIC SPINE WO CON INDICATIONS: stool incontinence /back pain/injury TECHNIQUE: Noncontrast sagittal T1 spine echo and T2 fast spin echo, sagittal STIR, and T2 fast spin echo through the thoracic spine. COMPARISON: [facility], MR, MR LUMBAR SPINE WO CON, 12/31/2023, 10:15. [facility], CT, CT CHEST ABD PEL WO CON, 12/30/2023, 13:09. FINDINGS: Image quality: This examination is limited by involuntary motion artifact. Alignment and Curvature: Accentuated thoracic kyphosis is seen. No focal AP alignment abnormality is seen. Bone Marrow: Marrow is of normal overall signal. No acute vertebral body compression fractures. No abnormal STIR signal can be seen to suggest bone contusion. Spinal Cord: Visualized spinal cord is normal in size and signal. Paraspinous Soft Tissues: No paravertebral masses. There is a small left-sided pleural effusion. Miscellaneous: Degenerative changes are seen throughout, with several levels of [id number] disc space narrowing, with associated endplate irregularity. Several levels of bridging anterior osteophytes can be seen. At the T2-T3 level, there is focal bridging disc osteophyte complex posteriorly, as on series 6, image 7, with moderate central canal narrowing and mild mass effect upon the ventral spinal cord. Milder degenerative changes are seen elsewhere. IMPRESSION: No imaging explanation is found for this patient's presenting symptoms. Negative for acute abnormality. No abnormal bone edema can be seen to suggest recent bony injury. At the T2-T3 level, there are bridging posteriorly directed endplate osteophytes seen, with associated moderate central canal narrowing. Dictated by: Liborio Razo M.D. on 12/31/2023 at 10:16 Approved by: Liborio Razo M.D. on 12/31/2023 at 10:20
--- NOTE | 2023-12-31 17:24 | PM.PN.1 ---
Subjective Subjective Interval history: CC: chest pain Feeling a bit better today infectious numbers are improved able to get up to chair today complains of raw skin on bottom working with PT with FWW Exam Vital Signs (past 8 hours): - 12/31/23 14:17 Temperature 96.9 F L Pulse Rate 72 Respiratory Rate 22 Blood Pressure 135/52 L Pulse Oximetry 99 Oxygen Flow Rate 0 Oxygen Delivery Method Room Air Oxygen Flow Rate 0 Narrative Exam Narrative: alert sitting up in chair Const Other: thin elder well developed Chest Other: extensive bruising to L chest wall Resp Other: moving air well clear to auscultation bilaterally on room air Cardio Other: regular rate, S1/S2 no pedal edema GI Other: soft nontender nondistended active bowel sounds Neuro Other: AAOx3 Objective Labs 12/31/23 06:40 12/31/23 06:40 Labs: Laboratory Results - last 24 hr 12/31/23 06:40 WBC 8.5 RBC 3.59 L Hgb 11.4 L Hct 32.4 L MCV 90.2 MCH 31.7 MCHC 35.2 RDW 12.9 Plt Count 311 Neut % (Auto) 80.4 H Lymph % (Auto) 10.6 L [place] % (Auto) 6.8 Eos % (Auto) 2.0 Baso % (Auto) 0.2 Neut # (Auto) 6900 Lymph # (Auto) 900 L [place] # (Auto) 600 Eos # (Auto) 200 Baso # (Auto) 0 Sodium 133 L Potassium 3.3 L Chloride 101 Carbon Dioxide 23 BUN 5 L Creatinine 0.46 L Estimated GFR > 60 BUN/Creatinine Ratio 10.9 Glucose 112 H Calcium 8.4 Total Bilirubin 0.8 AST 43 H ALT 23 Alkaline Phosphatase 73 Total Protein 6.2 L Albumin 3.2 L Globulin 3.0 Albumin/Globulin Ratio 1.1 PFSH Social History household members: family Smoking Status: Never smoker alcohol intake: never Assessment & Plan Assessment & Plan narrative: #s/p fall #broken L ribs, four consecutive pain control with prns and lidocaine patch is doign ok able to deep breathe and cough O2 monitor and prn O2 PT says she will be ok to go home with supervision and FWW #leukocytosis s/p 1 dose of rocephin and feeling better but nauseous WBCs came right back down I do suspect that was reactive monitor - hold further abx #urinary retention New issue Haynes placed in ED try to dc haynes tomorrow prior to discharge - flomax ordered #hx of hypothyroidism very low dose 25 mcg at home hold for now resume on discharge #cold feet a/w PTSD Pt reports she will do a lot better this admission if her feet can be kept nice and warm constantly. OK to use a hot water bottle or electric blanket as desired. dispo: work on d/c Haynes, likely home with or without home health tomorrow MDM: cousin [phone] diet: general DVT: Lovenox PCP: Reymundo Code: DNR Quality VTE Deep Vein Thrombosis/Pulmonary Embolism Present on Admission: No
[2023-12-31] MEDS: TAMSULOSIN 0.4 MG CAPSULE PO (19:23)
[2023-12-31 20:00] VITALS: BP 151/64; PULSE 71; RESP 16; TEMP 36.1; O2SAT 100
[2024-01-01 02:05] VITALS: BP 144/70; PULSE 74; RESP 16; TEMP 36.7; O2SAT 96
[2024-01-01 06:38] LABS: Add Manual Diff / Slide Review NO; Basophils Absolute Auto 0 /uL (0-100); Basophils Percent Auto 0.2 % (0-2); Eosinophils Absolute Auto 200 /uL (0-450); Eosinophils Percent Auto 2.8 % (2-4); Hematocrit 32.2 % (36-46); Hemoglobin 11.2 g/dL (12.0-16.0); Lymphocytes Absolute Auto 1000 /uL (1100-4500); Lymphocytes Percent Auto 14.6 % (25-40); Mean Corpuscular HGB Conc 34.9 % (30-36); Mean Corpuscular Hemoglobin 31.5 PG (26-34); Monocytes Absolute Auto 600 /uL (0-900); Monocytes Percent Auto 8.3 % (3-14); Neutrophils Absolute Auto 5000 /uL (1500-7000); Neutrophils Percent Auto 74.1 % (50-75); Platelet Count 302 X10^3/uL (150-400); Red Blood Cell Count 3.58 X10^6/uL (4.0-5.2); Red Cell Distribution Width 12.8 % (11.6-14.8); White Blood Cell Count 6.7 X10^3/uL (4.5-11.0)
[2024-01-01 06:45] LABS: Alanine Aminotransferase 25 IU/L (<35); Albumin 3.2 g/dL (3.5-5.0); Albumin Globulin Ratio 1.1 (1.0-2.8); Alkaline Phosphatase 70 U/L (38-126); Aspartate Aminotransferase 35 IU/L (14-36); BUN Creatinine Ratio 9.3 (6-22); Bilirubin Total 0.7 mg/dL (0.2-1.3); Blood Urea Nitrogen 4 mg/dL (7-17); Calcium 8.4 mg/dL (8.4-10.2); Carbon Dioxide 25 mmol/L (22-32); Chloride 101 mmol/L (98-107); Estimated Glomerular Filt Rate > 60 mL/min (>60); Glucose 117 mg/dL (80-110); HEMOLYSIS < 15 (0-50); Potassium 3.8 mmol/L (3.4-5.1); Sodium 132 mmol/L (137-145); Total Protein 6.2 g/dL (6.3-8.2)
[2024-01-01 08:00] VITALS: BP 124/54; PULSE 79; RESP 18; TEMP 35.9; O2SAT 98
--- NOTE | 2024-01-01 11:02 | PT.IPTN ---
Physical Therapy Treatment Note M2 PT-IP Current Condition Start: 12/31/23 13:36 Freq: NEEDED Status: Active Protocol: Document 12/31/23 11:45 AB (Rec: 12/31/23 13:52 AB [id number]) Physical Therapy Current Condition Current Condition Evaluation Date 12/31/23 Treatment Diagnosis S/p fall; Rib fx; difficulty in walking Onset Date 12/30/23 M3 PT-IP Subjective Start: 12/31/23 13:36 Freq: NEEDED Status: Active Protocol: Document 01/01/24 11:29 TS (Rec: 01/01/24 11:36 TS [id number]) Subjective Physical Therapy Visit Type Type Treatment Note Visit Start Time 11:02 Visit Stop Time 11:28 Number of COMPOSING MACHINE OPERATOR Visits 1 Physical Therapy Visit Comments Patient Comments Pt found resting in chair, reports pain in L side due to multiple rib fx's. Pt is agreeable to PT. Therapy Pain Assessment Pain When Pain Assessed At Rest Pain Present Pain Present Pain Reported M4 PT-IP Mobility and Gait Start: 12/31/23 13:36 Freq: NEEDED Status: Active Protocol: Document 01/01/24 11:29 TS (Rec: 01/01/24 11:36 TS [id number]) PT-Transfer Assessment Sit to and From Stand Sit to and from Stand Standby Assistance Equipment Transfer Assistive Device Gait Belt,Front Wheeled Walker Orthotic/Prosthetic Devices or Brace: No Comments Mobility Comments STS form chair SBA with BUE support pushing from arms of chair. She ambulated in hallway ~300'SBA with use of FWW and a step thru gait, denied any dizziness, thermal changes or SOB. Pt reports not having a step to get into house just a small threshold to get inot door, declined stairs. Pt ambulated back to chair, all needs met, call light within reach. Gait Assessment Gait Gait Assistance Required: Standby Assistance Distance (Feet) 300 Able to Maintain Weight Bearing Status Yes During Gait Assistive Devices Assistive Device Gait Belt,Front Wheeled Walker Orthotic/Prosthetic Devices or Brace: No Gait Deviations General Gait Pattern Antalgic,Ataxic,Decreased Stride Length,Decreased Feet Clearance,Flexed Trunk Factors Limiting Gait Function Factors Limiting Gait Function Decreased Activity Tolerance, Decreased Strength,Limited Range of Motion,Pain,Poor Balance,Poor Safety Awareness PT-Balance Assessment Sitting Balance and Reactions Static Sitting Balance Ability Normal Dynamic Sitting Balance Ability Good Standing Balance and Reactions Static Standing Balance Ability Good Dynamic Standing Balance Ability Good Device Used FWW M5 PT-IP Objective Assessments Start: 12/31/23 13:36 Freq: NEEDED Status: Active Protocol: Document 12/31/23 11:45 AB (Rec: 12/31/23 13:52 AB [id number]) Orientation Orientation/Cognition Level of Alertness Alert Orientation Name,Place,Situation Language Function Ability Hard of Hearing Safety Awareness Decreased Safety Awareness Memory Description Short Term Impaired Gross Range of Motion Lower Extremity ROM Assessment Within Functional Limits Strength Lower Extremity Strength Assessment Within Functional Limits Coordination Assessment Gross Coordination Gross Coordination WNL Sensation Assessment Sensation Gross Sensation WNL Muscle Tone Muscle Tone WNL Yes M6 PT-IP Treatment Start: 12/31/23 13:36 Freq: NEEDED Status: Active Protocol: Document 01/01/24 11:29 TS (Rec: 01/01/24 11:36 TS [id number]) Physical Therapy Treatment Education Education Provided Safety M7 PT-IP Assessment and Plan Start: 12/31/23 13:36 Freq: NEEDED Status: Active Protocol: Document 01/01/24 11:29 TS (Rec: 01/01/24 11:36 TS [id number]) PT Summary Assessment and Plan Potential Rehabilitation Potential Good Summary Impairments Pain,ROM,Strength,Balance, Coordination,Sensation,Tone, Cognition,Bed Mobility, Transfers,Gait,Activity Tolerance Progress Towards Goals Progressing Toward Goals Assessment Summary Madeline is making good progress with her mobility. She is SBA for STS with use of FWW. She progressed her gait to ~300' SBA with use of FWW, demonstrates good balance and management of FWW. She declined stair training due to having a small threshold to get through door. PT is recommending pt return home with assist. Goals Bed Mobility Goal Independent Transfer Goal Independent,Four Wheeled Walker Gait Goal Independent,Four Wheel Walker Gait Distance 200 Other Goals improve transfers and ambulation without AD ~ 250 ft SBA up/down 1 step 4WW or without AD SBA Days to Meet Goals 10 Frequency of Treatment Frequency Of Treatment Once a Day Treatment Plan Physical Therapy Treatment Plan Bed Mobility Training,Transfer Training,Gait Training, Therapeutic Exercise,Balance Retraining,Discharge Planning, Hot or Cold Pack,Neuromuscular Re-ed,Coordination Retraining Precautions Other Precautions falls Recommendations To Nursing Amount of Assist Needed Standby Assistance Discharge Recommendations PT Discharge Recommendations Home with Assistance,Home Health Equipment Needed for Home Before FWW if not safe with 4WW/ Discharge without AD Transportation Needs at Discharge Private Vehicle
[2024-01-01] MEDS: LIDOCAINE 5% PATCH 1 EACH TOP (11:04)
--- NOTE | 2024-01-01 13:04 | CM.DPNOTE ---
DC Note According to Dr Plasencia, patient is likely to discharge home today and agreeable to services, no agency preference. Referral emailed to Danica at [facility] , based on soonest availability. Emailed face sheet, completed and signed F2F and HH order. Plan: Discharge likely today, if patient can void without haynes, home w/sister to assist, [facility] PT/OT JW
--- NOTE | 2024-01-01 14:36 | PC.NURSE ---
Pt A&Ox4, VSS. Correia catheter removed, patient education given.
[2024-01-01 16:30] VITALS: BP 129/72; PULSE 97; RESP 20; TEMP 35.9; O2SAT 97
[2024-01-01] MEDS: cefTRIAXone 1,000 MG in SODIUM CHLORIDE 0.9% 100 ML 200 MG IV (17:46)
[2024-01-01] MEDS: LIDOCAINE 5% OINT 35 GM 1 APPLIC TOP (17:52)
[2024-01-01 20:00] VITALS: BP 146/53; PULSE 88; RESP 16; TEMP 36.1; O2SAT 99
--- NOTE | 2024-01-01 20:10 | P.PN_ITS ---
Subjective Subjective Date Patient Seen: 01/01/24 Time Patient Seen: 11:25 Interval history: Ms. Kelly is sitting comfortably in a chair at bedside this morning. Just finished working with PT, was able to ambulate fairly well using walker. Actually feels better after moving after sitting around for so long. Pain well managed, no significant effect on ability to breath deeply when needed. Had an issue with urinary retention after fall, hopeful to get haynes out and home as soon as possible. Exam Vital Signs (past 8 hours): - 01/01/24 16:30 Temperature 96.6 F L Pulse Rate 97 H Respiratory Rate 20 Blood Pressure 129/72 Pulse Oximetry 97 Oxygen Flow Rate 0 Oxygen Delivery Method Room Air Oxygen Flow Rate 0 Narrative Exam Narrative: General: Pleasant, NAD HEENT: NC/AT, EOMI, moist mucous membranes Chest: Extensive bruising to left chest wall CV: RRR, normal S1 S2, no m/g/r Resp: CTAB, comfortable work of breathing, speaks in complete sentences Abdomen: Soft, NTND, BS+ Objective Labs 01/01/24 06:15 01/01/24 06:15 Labs: Laboratory Results - last 24 hr 01/01/24 06:15 WBC 6.7 RBC 3.58 L Hgb 11.2 L Hct 32.2 L MCV 90.0 MCH 31.5 MCHC 34.9 RDW 12.8 Plt Count 302 Neut % (Auto) 74.1 Lymph % (Auto) 14.6 L [place] % (Auto) 8.3 Eos % (Auto) 2.8 Baso % (Auto) 0.2 Neut # (Auto) 5000 Lymph # (Auto) 1000 L [place] # (Auto) 600 Eos # (Auto) 200 Baso # (Auto) 0 Sodium 132 L Potassium 3.8 Chloride 101 Carbon Dioxide 25 BUN 4 L Creatinine 0.43 L Estimated GFR > 60 BUN/Creatinine Ratio 9.3 Glucose 117 H Calcium 8.4 Total Bilirubin 0.7 AST 35 ALT 25 Alkaline Phosphatase 70 Total Protein 6.2 L Albumin 3.2 L Globulin 3.0 Albumin/Globulin Ratio 1.1 PFSH Social History household members: family Smoking Status: Never smoker alcohol intake: never Assessment & Plan Assessment and plan (1) Multiple fractures of ribs: Qualifiers: Encounter type: initial encounter Fracture type: closed Laterality: l eft Qualified Code(s): S22.42XA - Multiple fractures of ribs, left side, initial encounter for closed fracture Status: Acute (2) Urinary retention: Status: Acute Assessment & Plan narrative: 78-year-old female admitted due to multiple left side rib fx after fall. #s/p fall #broken L ribs, four consecutive -tylenol/hydrocodone/topical lidocaine/morphine prn for pain -O2 support prn -PT recs home w/FWW and 07/06 assist vs HH #leukocytosis Resolved, likely reactive -s/p 1 dose of rocephin -trend CBC #urinary retention New issue, Haynes placed in ED -s/p tamsulosin x1 dose -dc haynes, voiding trial prior to dc #h/o hypothyroidism Very low dose 25 mcg at home -hold while inpt, resume on discharge #cold feet a/w PTSD Pt reports she will do a lot better this admission if her feet can be kept nice and warm constantly. OK to use a hot water bottle or electric blanket as desired. Diet: Regular DVT ppx: Lovenox Code: DNR MDM: Cousin [phone] Dispo: Home w/HHPT pending voiding trial Time Spent With Patient Time with patient: 30 to 49 minutes with 50% spent counseling/coordinating care Quality VTE Deep Vein Thrombosis/Pulmonary Embolism Present on Admission: No
[2024-01-01] MEDS: diphenhydrAMINE 25 MG TABLET PO (23:43)
[2024-01-01] MEDS: TAMSULOSIN 0.4 MG CAPSULE PO (23:43)
[2024-01-01] MEDS: ACETAMINOPHEN 325 MG TABLET 650 MG PO (23:43)
[2024-01-02 02:35] VITALS: BP 138/60; PULSE 74; RESP 16; TEMP 35.9; O2SAT 99
[2024-01-02 08:00] VITALS: BP 135/55; PULSE 68; RESP 16; TEMP 36.4; O2SAT 98
[2024-01-02] MEDS: TAMSULOSIN 0.4 MG CAPSULE PO (10:00)
[2024-01-02] MEDS: ENOXAPARIN 40 MG/0.4 ML SYRINGE SUBCUT (10:00)
[2024-01-02] MEDS: LIDOCAINE 5% PATCH 1 EACH TOP (10:00)
[2024-01-02 10:03] VITALS: BP 135/55; PULSE 68; RESP 16; TEMP 36.4; O2SAT 98
[2024-01-02 10:06] LABS: Add Manual Diff / Slide Review NO; Basophils Absolute Auto 0 /uL (0-100); Basophils Percent Auto 0.3 % (0-2); Eosinophils Absolute Auto 200 /uL (0-450); Eosinophils Percent Auto 3.5 % (2-4); Hemoglobin 12.1 g/dL (12.0-16.0); Lymphocytes Absolute Auto 900 /uL (1100-4500); Lymphocytes Percent Auto 19.9 % (25-40); Mean Corpuscular HGB Conc 34.5 % (30-36); Mean Corpuscular Volume 89.9 fL (80-100); Monocytes Absolute Auto 400 /uL (0-900); Monocytes Percent Auto 8.1 % (3-14); Neutrophils Absolute Auto 3200 /uL (1500-7000); Neutrophils Percent Auto 68.2 % (50-75); Platelet Count 350 X10^3/uL (150-400); Red Cell Distribution Width 12.9 % (11.6-14.8); White Blood Cell Count 4.8 X10^3/uL (4.5-11.0)
[2024-01-02 10:33] LABS: Alanine Aminotransferase 26 IU/L (<35); Albumin 3.6 g/dL (3.5-5.0); Albumin Globulin Ratio 1.1 (1.0-2.8); Alkaline Phosphatase 81 U/L (38-126); Aspartate Aminotransferase 38 IU/L (14-36); Bilirubin Total 0.6 mg/dL (0.2-1.3); Carbon Dioxide 25 mmol/L (22-32); Chloride 99 mmol/L (98-107); Estimated Glomerular Filt Rate > 60 mL/min (>60); Globulin 3.2 g/dL (1.7-4.1); Glucose 117 mg/dL (80-110); HEMOLYSIS < 15 (0-50); Potassium 3.7 mmol/L (3.4-5.1); Sodium 134 mmol/L (137-145); Total Protein 6.8 g/dL (6.3-8.2)
[2024-01-02 10:34] LABS: BUN Creatinine Ratio 4.3 (6-22); Blood Urea Nitrogen 2 mg/dL (7-17)
--- NOTE | 2024-01-02 11:40 | PT.IPTN ---
Current Diagnoses Retention of urine, unspecified (12/30/23) Multiple fractures of ribs, left side, initial encounter for closed fracture (12/30/23) Physical Therapy Treatment Note M2 PT-IP Current Condition Start: 12/31/23 13:36 Freq: NEEDED Status: Active Protocol: Document 12/31/23 11:45 AB (Rec: 12/31/23 13:52 AB [id number]) Physical Therapy Current Condition Current Condition Evaluation Date 12/31/23 Treatment Diagnosis S/p fall; Rib fx; difficulty in walking Onset Date 12/30/23 M3 PT-IP Subjective Start: 12/31/23 13:36 Freq: NEEDED Status: Active Protocol: Document 01/02/24 10:54 MB (Rec: 01/02/24 11:39 MB [id number]) Subjective Physical Therapy Visit Type Type Treatment Note Visit Start Time 10:54 Visit Stop Time 11:17 Number of LEAF STRIPPER Visits 0 Physical Therapy Visit Comments Patient Comments Pt states that she hopes to go home today. Therapy Pain Assessment Pain When Pain Assessed During Mobility Pain Present Pain Present Pain Reported Location Left Ribs Intensity 3 Scale Used Vickers-Zabala (Faces) Pain Management Techniques Re-positioning M4 PT-IP Mobility and Gait Start: 12/31/23 13:36 Freq: NEEDED Status: Active Protocol: Document 01/02/24 10:54 MB (Rec: 01/02/24 11:39 MB [id number]) PT-Transfer Assessment Sit to and From Stand Sit to and from Stand Standby Assistance,1 Person Assistance,Use of Upper Extremities Equipment Transfer Assistive Device Gait Belt,Front Wheeled Walker Orthotic/Prosthetic Devices or Brace: No Transfer Ability Level of Assist Standby Assistance,1 Person Assistance,Use of Upper Extremities Comments Mobility Comments PT encouraged bed mobility trial and pt reports increased pain on right with old shoulder injury and too much rib pain with bed mobility and so deferred today. Transferred to and from chair and commode with two transfers at each. Practiced with 4WW as she will have this at home as well as RW. Pt does not follow commands to bring the walker back to the commode and chair with her and tends to push it to the side. She has evidence of imbalance. Cues for hand placement for transfers. Gait Assessment Gait Gait Assistance Required: Standby Assistance,1 Person Assist Distance (Feet) 200 Able to Maintain Weight Bearing Status Yes During Gait Assistive Devices Assistive Device Gait Belt,Front Wheeled Walker ,4 Wheeled Walker Orthotic/Prosthetic Devices or Brace: No Gait Deviations General Gait Pattern Antalgic Factors Limiting Gait Function Factors Limiting Gait Function Pain,Poor Balance,Poor Safety Awareness Comments Gait Comments 200 feet gait with 4WW and 10' x2 with RW with SBA. Pt adamantly states that she has no step at home and so will discontinue goal. PT-Balance Assessment Sitting Balance and Reactions Static Sitting Balance Ability Good Dynamic Sitting Balance Ability Good Standing Balance and Reactions Static Standing Balance Ability Good Dynamic Standing Balance Ability Fair Device Used 4WW and RW M5 PT-IP Objective Assessments Start: 12/31/23 13:36 Freq: NEEDED Status: Active Protocol: Document 12/31/23 11:45 AB (Rec: 12/31/23 13:52 AB [id number]) Orientation Orientation/Cognition Level of Alertness Alert Orientation Name,Place,Situation Language Function Ability Hard of Hearing Safety Awareness Decreased Safety Awareness Memory Description Short Term Impaired Gross Range of Motion Lower Extremity ROM Assessment Within Functional Limits Strength Lower Extremity Strength Assessment Within Functional Limits Coordination Assessment Gross Coordination Gross Coordination WNL Sensation Assessment Sensation Gross Sensation WNL Muscle Tone Muscle Tone WNL Yes M6 PT-IP Treatment Start: 12/31/23 13:36 Freq: NEEDED Status: Active Protocol: Document 01/02/24 10:54 MB (Rec: 01/02/24 11:39 MB [id number]) Physical Therapy Treatment Education Education Provided Safety M7 PT-IP Assessment and Plan Start: 12/31/23 13:36 Freq: NEEDED Status: Active Protocol: Document 01/02/24 10:54 MB (Rec: 01/02/24 11:39 MB [id number]) PT Summary Assessment and Plan Potential Rehabilitation Potential Good Summary Impairments Pain,ROM,Strength,Balance,Bed Mobility,Transfers,Gait, Activity Tolerance Progress Towards Goals Progressing Toward Goals Assessment Summary Pt has poor safety awareness with transfers with use of AD. Tried 4WW today as she will have this at home. Goals Bed Mobility Goal Independent Transfer Goal Independent,Four Wheeled Walker Gait Goal Independent,Four Wheel Walker Gait Distance 300 Days to Meet Goals 2 Frequency of Treatment Frequency Of Treatment Once a Day Treatment Plan Physical Therapy Treatment Plan Bed Mobility Training,Transfer Training,Gait Training, Therapeutic Exercise,Balance Retraining,Discharge Planning, Hot or Cold Pack,Neuromuscular Re-ed Precautions Other Precautions falls Recommendations To Nursing Amount of Assist Needed Standby Assistance Discharge Recommendations PT Discharge Recommendations Home with Assistance,Home Health Transportation Needs at Discharge Private Vehicle
[2024-01-02 12:00] VITALS: BP 132/46; PULSE 69; RESP 16; TEMP 36.3; O2SAT 99
--- NOTE | 2024-01-02 12:00 | CM.DPNOTE ---
DCP Note ECONOMIC SPECIALIST reviewed EMR. ECONOMIC SPECIALIST spoke with [place] at [facility], has not had a chance to review but reports likely can accept. ECONOMIC SPECIALIST forwarded referral email to him with F2f and order attached. Per provider, likely to dc later this afternoon. Per RN, pt voiding a tiny bit and pt is eager to go home. ECONOMIC SPECIALIST entered room and introduced self and role. Pt sitting in chair, pleasant and chatty, eager to dc home. Confirm sister can support at home and is plan for ride. Agreeable to PT/OT. ECONOMIC SPECIALIST provided pt with [employer] brochure. Plan: likely home later today with sister support. [facility] to follow for PT/OT. No additional CM needs identified. CM team will follow as needed. CORINNE Quintanilla
--- NOTE | 2024-01-02 14:29 | PM.DS.1 ---
History of Present Illness History of Present Illness Date Patient Seen: 01/02/24 Time Patient Seen: 11:55 Date of Onset of Symptoms: 12/22/23 Chief complaint: fall, fecal incontinence unable to urinate by PCP Narrative: Ms. Kelly presented to her outpatient clinic on 12/30/2023 with complaint of urinary retention and chest pain after fall several days prior, tripped over her cat and landed on a heavy piece of furniture. Initial XRs showed no fracture but repeat CT on date of admission demonstrated 4 broken ribs. She also reported urinary retention - initial eval of urine not remarkable for obvious signs of infection. She had been constipated up until taking some laxative two days prior to admission and had a big blowout. Discharge Providers Provider Date of admission: 12/30/23 15:59 Discharge Date: 01/02/24 Primary care physician: Jason Hanley MD Consults: 12/30/23 17:23 Consult to Occupational Therapy Evaluate & Treat Comment: Physician Instructions: Evaluate and treat Consult to Physical Therapy Evaluate & Treat Comment: Physician Instructions: Evaluate and Treat 01/01/24 12:55 Consult to Home Health Routine Comment: Reason For Exam: Home health services upon discharge Discharge provider: Cholo Plasencia MD Summary Hospital Course Discharge Diagnosis: #Ground level fall #Multiple left side rib fx #Urinary retention #Leukocytosis #Hypothyroidism Hospital Course: Patient admitted for PT/mobility evaluation and monitoring of urinary retention. She was able to ambulate fairly easily with assistance of FWW throughout hospitalization. Initial Correia catheterization resulted in good you IOP with no e/o urinary tract infection. Correia was removed 01/01 and patient was able to void small amounts but PVR on bladder scan was noted to be approximately 600 cc which resolved with straight catheterization. Restarted on tamsulosin and monitored for an additional day. At discharge patient continues to void in small amounts, however she denies any pelvic discomfort or distention and feels that some of her urinary issues may due to anxiety. Status at Discharge Cognitive/behavioral status at discharge: at baseline, oriented Functional status at discharge: independent ambulation Overall status at discharge: patient is back to baseline Time Spent with Patient Time spent: Greater than 30 minutes Exam Vital Signs (past 8 hours): - 01/02/24 08:00 01/02/24 10:03 01/02/24 12:00 Temperature 97.6 F 97.6 F 97.4 F L Pulse Rate 68 68 69 Respiratory Rate 16 16 16 Blood Pressure 135/55 L 135/55 L 132/46 L Pulse Oximetry 98 98 99 Oxygen Delivery Method Room Air Oxygen Flow Rate 0 Narrative Exam Narrative: General: Pleasant, NAD HEENT: NC/AT, EOMI, moist mucous membranes Chest: Extensive bruising to left posterior thoracic wall CV: RRR, normal S1 S2, no m/g/r Resp: CTAB, comfortable work of breathing, speaks in complete sentences Abdomen: Soft, NTND, no pelvic tenderness, BS+ Extremities: No edema Neuro: A&O x3, normal cognition, moves all extremities Objective Labs 01/02/24 09:45 01/02/24 09:45 Labs: Laboratory Results - last 24 hr 01/02/24 09:45 WBC 4.8 RBC 3.90 L Hgb 12.1 Hct 35.0 L MCV 89.9 MCH 31.0 MCHC 34.5 RDW 12.9 Plt Count 350 Neut % (Auto) 68.2 Lymph % (Auto) 19.9 L [place] % (Auto) 8.1 Eos % (Auto) 3.5 Baso % (Auto) 0.3 Neut # (Auto) 3200 Lymph # (Auto) 900 L [place] # (Auto) 400 Eos # (Auto) 200 Baso # (Auto) 0 Sodium 134 L Potassium 3.7 Chloride 99 Carbon Dioxide 25 BUN 2 L Creatinine 0.47 L Estimated GFR > 60 BUN/Creatinine Ratio 4.3 L Glucose 117 H Calcium 9.0 Total Bilirubin 0.6 AST 38 H ALT 26 Alkaline Phosphatase 81 Total Protein 6.8 Albumin 3.6 Globulin 3.2 Albumin/Globulin Ratio 1.1 [facility] Social History household members: family Smoking Status: Never smoker alcohol intake: never Discharge Assessment & Plan Assessment and Plan Assessment: 78-year-old female admitted for left-sided rib fractures and urinary retention after ground level fall. Plan of Treatment: #s/p fall #broken L side ribs, four consecutive -tylenol/hydrocodone/topical lidocaine prn for pain -PT recs home w/FWW and 07/06 assist vs HH #leukocytosis Resolved, likely reactive. -s/p 1 dose of rocephin #urinary retention New issue, persisting now for almost 2 weeks. Bladder drained easily with Correia/catheterization. Able to void spontaneously but seems come in small increments rather than completely emptying bladder. No pain or obvious distention on exam, MRI of thoracic and lumbar spine negative for neurogenic explanation. -continue tamsulosin daily -follow-up with primary physician for outpatient urologic evaluation #h/o hypothyroidism -levothyroxine 25 mcg Discharge Plan Discharge Plan Patient Disposition: Home Provider Discharge Comment: Follow-up with your primary physician this week regarding hospitalization and urinary retention Discharge orders & Medications Prescriptions: New lidocaine 5 % Adhesive Patch,Medicated 1 patch topical DAILY Qty: 15 1RF lidocaine 5 % Ointment 1 applic topical QID PRN (Reason: Pain, Mild (1-3)) Qty: 50 1RF hydrocodone-acetaminophen 5-325 mg Tablet 1 tab PO Q6-8H PRN (Reason: Pain, Moderate (4-6)) Qty: 10 0RF tamsulosin [Flomax] 0.4 mg Capsule 0.4 mg PO DAILY Qty: 30 0RF polyethylene glycol 3350 17 gram/dose powder 17 g PO DAILY Qty: 510 2RF Continued levothyroxine 25 mcg capsule 50 mcg PO DAILY lansoprazole 15 mg capsule,delayed release(DR/EC) 15 mg PO DAILY Follow up/Referrals: Jason Hanley MD [Primary Care Provider] - Diet/Activity/Treatments Diet: Regular Visit Report/Discharge Packet Stand Alone Forms: Patient Portal/API, Stroke Signs & Symptoms Discharge Data Primary Care Provider: Jason Hanley Attending Provider: Willie Dwyer Admit Date/Time: 12/30/23 15:59 Quality VTE Deep Vein Thrombosis/Pulmonary Embolism Present on Admission: No
--- NOTE | 2024-01-02 16:00 | PC.NURSE ---
Pt A&Ox4, VSS. IV removed, pt tolerated well. Reviewed discharge information with patient, patient able to teach back independently. Gathered patient belongings. Patient escorted downstairs in wheelchair by [employer] and discharged home with ride from sister.
== END 2024-01-02 15:45 | disposition home or self-care (01) ==
LOC: ED 14:48 → AC 16:00
PROVIDERS: Admitting Provider Family Medicine; Emergency Provider Emergency Medicine; Family Provider Family Medicine; PCP Family Medicine; Referring Provider Emergency Medicine; Visit Provider Family Medicine
DX: R07.9 Chest pain, unspecified (principal); R33.9 Retention of urine, unspecified; S22.42XA Multiple fractures of ribs, left side, initial encounter for closed fracture; W01.0XXA Fall on same level from slipping, tripping and stumbling without subsequent striking against object, initial encounter; Y92.009 Unspecified place in unspecified non-institutional (private) residence as the place of occurrence of the external cause; D72.829 Elevated white blood cell count, unspecified; E03.9 Hypothyroidism, unspecified; M54.6 Pain in thoracic spine; R15.9 Full incontinence of feces
CPT/HCPCS: 36415; 51798; 70450; 71250; 72125; 72146; 72148; 74176; 80053; 81001; 82550; 83690; 83735; 84484; 85025; 85610; 85730; 93005; 93010; 96361; 96365; 96366; 96372; 97116; 97162; 97166; 97530; 99232; 99238; 99285; G0378; J0696; J1650